=== PATIENT | female | born 1985 | race Asian ===

== ENCOUNTER → 2020-10-16 | Emergency (ER) | payer SELFPAY ==
[~2020-10-16] VITALS: Ht 165.1 cm; Wt 70.8 kg
[~2020-10-16] MED LIST: PREDNISONE20 MG PO
== END | disposition home or self-care (01) ==
LOC: ER 08:26
DX: R06.02 Shortness of breath (principal); R05 Cough; J40 Bronchitis, not specified as acute or chronic
CPT/HCPCS: 71045; 99282

== ENCOUNTER 2020-11-25 12:13 | Emergency (ER) | payer OTHER ==
[~2020-11-25] VITALS: Ht 165.1 cm; Wt 70.3 kg
[2020-11-25] MEDS ORDERED: SODIUM CHLORIDE 0.9% 1000ML 1,000 ML IV STA ×2 (12:28→13:36)
[2020-11-25] MEDS ORDERED: METFORMIN HCL 500 MG TAB CR PO ONE (12:30)
[2020-11-25 12:53] LABS: BASOPHILS # (AUTO) 0.1 (0.0-0.1); BASOPHILS % 0.9 % (0.0-1.0); EOSINOPHILS # (AUTO) 0.4 (0.0-0.4); HEMATOCRIT 46.1 % (34.2-44.1); HEMOGLOBIN 16.5 g/dL (12.0-16.0); LYMPHOCYTES # (AUTO) 2.6 (1.0-3.2); LYMPHOCYTES % 32.2 % (18.0-39.1); MEAN CORPUSCULAR HEMOGLOBIN 32.1 pg (28-32); MEAN CORPUSCULAR HGB CONC 35.8 g/dL (31-35); MEAN CORPUSCULAR VOLUME 89.7 fL (81-99); MONOCYTES # (AUTO) 0.4 (0.2-0.8); MONOCYTES % 4.8 % (4.4-11.3); NEUTROPHILS # (AUTO) 4.6 (2.1-6.9); NEUTROPHILS % 56.5 % (38.7-80.0); PLATELET COUNT 242 x10e3/uL (140-360); RED BLOOD COUNT 5.14 x10e6/uL (3.6-5.1); RED CELL DISTRIBUTION WIDTH 11.6 % (11.7-14.4)
[2020-11-25 13:03] LABS: CLARITY,URINE CLEAR (CLEAR); COLOR,URINE YELLOW (YELLOW); KETONES,URINE TRACE (NEGATIVE); LEUKOCYTE ESTERASE ,URINE NEGATIVE (NEGATIVE); NITRITE,URINE NEGATIVE (NEGATIVE); PROTEIN,URINE DIPSTICK NEGATIVE (NEGATIVE)
[2020-11-25 13:04] LABS: URINE UROBILINOGEN 0.2 mg/dL (0.2 - 1)
[2020-11-25 13:12] LABS: ALBUMIN 4.9 g/dL (3.5-5.0); ALBUMIN/GLOBULIN RATIO 1.6 (0.8-2.0); ANION GAP 16.9 mmol/L (8-16); CALCIUM 9.9 mg/dL (8.4-10.2); CREATININE, SERUM 0.78 mg/dL (0.57-1.11); POTASSIUM 3.9 mmol/L (3.5-5.1)
[2020-11-25 13:17] LABS: BACTERIA,URINE FEW /HPF; EPITHELIAL CELLS,URINE MANY /LPF; RBC,URINE 0-5 /HPF (0-5); WBC,URINE (MAN) 0-5 /HPF (0-5)
[2020-11-25] MEDS ORDERED: METFORMIN HCL500 MG PO (15:39)
[2020-11-25 16:08] VITALS: BP 137/99
== END 2020-11-25 16:13 | disposition home or self-care (01) ==
LOC: ER 12:18
DX: E11.65 Type 2 diabetes mellitus with hyperglycemia (principal)
CPT/HCPCS: 36415; 80053; 81001; 81025; 82948; 85025; 99284; J7030

== ENCOUNTER 2022-05-07 23:33 | Emergency (ER) | payer OTHER ==
[~2022-05-07] VITALS: Ht 165.1 cm; Wt 70.3 kg
[~2022-05-07 23:33] MED LIST changes: +METFORMIN HCL500 MG PO
[2022-05-07] MEDS ORDERED: KETOROLAC TROMETHAMINE 30 MG/ML VIAL IV STA (23:43)
[2022-05-07] MEDS ORDERED: ONDANSETRON HCL INJ 2MG/ML 2ML 2 MG/ML VIAL IV STA (23:43)
[2022-05-07] MEDS ORDERED: SODIUM CHLORIDE 0.9% 1000ML 1,000 ML IV SCH (23:45)
[2022-05-07] MEDS ORDERED: SODIUM CHLORIDE FLUSH 10 ML SYR IV PRN (23:45)
[2022-05-08 00:03] LABS: BASOPHILS # (AUTO) 0.1 (0.0-0.1); BASOPHILS % 0.6 % (0.0-1.0); EOSINOPHILS # (AUTO) 0.1 (0.0-0.4); EOSINOPHILS % 0.7 % (0.0-6.0); HEMATOCRIT 47.6 % (34.2-44.1); HEMOGLOBIN 16.4 g/dL (12.0-16.0); LYMPHOCYTES # (AUTO) 1.9 (1.0-3.2); LYMPHOCYTES % 22.4 % (18.0-39.1); MEAN CORPUSCULAR HEMOGLOBIN 32.2 pg (28-32); MEAN CORPUSCULAR HGB CONC 34.5 g/dL (31-35); MEAN CORPUSCULAR VOLUME 93.3 fL (81-99); MONOCYTES # (AUTO) 0.4 (0.2-0.8); MONOCYTES % 4.9 % (4.4-11.3); NEUTROPHILS % 71.3 % (38.7-80.0); PLATELET COUNT 221 x10e3/uL (140-360); RED CELL DISTRIBUTION WIDTH 11.5 % (11.7-14.4)
[2022-05-08] MEDS ORDERED: KETOROLAC TROMETHAMINE 30 MG/ML VIAL ONE (00:03)
[2022-05-08] MEDS ORDERED: ONDANSETRON HCL INJ 2MG/ML 2ML 2 MG/ML VIAL ONE (00:03)
[2022-05-08] MEDS ORDERED: SODIUM CHLORIDE 0.9% 1000ML 1,000 ML ONE (00:03)
[2022-05-08 00:05] LABS: AMPHETAMINES SCREEN,URINE NEGATIVE (NEGATIVE); BENZODIAZEPINES SCREEN,URINE NEGATIVE (NEGATIVE); CLARITY,URINE SL CLOUDY (CLEAR); COLOR,URINE YELLOW (YELLOW); KETONES,URINE >=160 (NEGATIVE); LEUKOCYTE ESTERASE ,URINE NEGATIVE (NEGATIVE); NITRITE,URINE NEGATIVE (NEGATIVE); PHENCYCLIDINE SCREEN,URINE NEGATIVE (NEGATIVE); PROTEIN,URINE DIPSTICK NEGATIVE (NEGATIVE); URINE UROBILINOGEN 0.2 mg/dL (0.2 - 1)
[2022-05-08 00:07] LABS: INR 0.94; PARTIAL THROMBOPLASTIN TIME 33.7 seconds (23.8-35.5); PROTHROMBIN TIME 13.1 seconds (11.9-14.5)
[2022-05-08 00:07] LABS: BACTERIA,URINE FEW /HPF; EPITHELIAL CELLS,URINE MODERATE /LPF; RBC,URINE 0-5 /HPF (0-5); WBC,URINE (MAN) 0-5 /HPF (0-5)
[2022-05-08] MEDS ORDERED: IOPAMIDOL 370 MG/ML 100 ML INFUS..BTL INJ ONE (00:12)
[2022-05-08 00:16] LABS: ALBUMIN 5.1 g/dL (3.5-5.0); ALBUMIN/GLOBULIN RATIO 1.8 (0.8-2.0); ANION GAP 18.4 mmol/L (8-16); CALCIUM 9.7 mg/dL (8.4-10.2); CREATININE, SERUM 0.8 mg/dL (0.57-1.11); POTASSIUM 3.4 mmol/L (3.5-5.1)
[2022-05-08] MEDS ORDERED: SODIUM CHLORIDE 0.9% 1000ML 1,000 ML IV ONE (00:30)
[2022-05-08] MEDS ORDERED: METFORMIN HCL500 MG PO (01:32)
[2022-05-08] MEDS ORDERED: ONDANSETRON ODT4 MG PO (01:32)
[2022-05-08 01:44] VITALS: BP 137/88
[2022-05-08] MEDS ORDERED: LANCET 30G-GLU1 EACH (01:44)
[2022-05-08] MEDS ORDERED: BLOOD GLUCOSE1 EAC1 (01:44)
== END 2022-05-08 01:47 | disposition home or self-care (01) ==
LOC: ER 23:42
DX: R10.32 Left lower quadrant pain (principal); R11.2 Nausea with vomiting, unspecified; E11.65 Type 2 diabetes mellitus with hyperglycemia
CPT/HCPCS: 36415; 74177; 80053; 80307; 81001; 82010; 82948; 83036; 84702; 85025; 85610; 85730; 99284; J1885; J2405; J7030; Q9967